=== PATIENT | female | born 1995 | race Caucasian/White ===

== ENCOUNTER → 2016-10-21 | Outpatient (CLI) | payer OTHER ==
[~2016-10-21] MED LIST: BENTYL20 MG PO; CITRATE OF MAG296 ML PO; MIRALAX17 GM PO; MOTRIN600 MG PO; NO HOME MED; PRENATAL TABLE1 EAC3 PO
== END | disposition home or self-care (01) ==
LOC: RES 12:41
DX: R06.2 Wheezing (principal)
CPT/HCPCS: 94070; 94726; 94729

== ENCOUNTER 2017-08-29 05:35 | Day surgery (SDC) | payer OTHER ==
[~2017-08-29] VITALS: Ht 170.2 cm; Wt 70.2 kg
[~2017-08-29 05:35] MED LIST changes: +FLOVENT 11120 INHALA IH; +ORTHO TRI-CY1 TABLE1 PO; +QVAR REDIHALE10.6 G1 IH; +ULTRAM50 MG PO; +VENTOLIN HFA18 GM IH
[2017-08-29] MEDS ORDERED: ZYRTEC10 M2 PO (05:58)
[2017-08-29 06:02] VITALS: BP 124/72
[2017-08-29] MEDS ORDERED: ENDOCET 5-3251 EACH PO (07:22)
[2017-08-29] MEDS ORDERED: IBUPROFEN800 MG PO (07:22)
[2017-08-29 09:50] VITALS: BP 112/56
[2017-08-29 10:58] VITALS: BP 102/52
== END 2017-08-29 11:13 | disposition home or self-care (01) ==
LOC: SDC
DX: N93.9 Abnormal uterine and vaginal bleeding, unspecified (principal); R10.2 Pelvic and perineal pain; K66.0 Peritoneal adhesions (postprocedural) (postinfection); L30.9 Dermatitis, unspecified
CPT/HCPCS: 88305; J0131; J0330; J1100; J1170; J2250; J2405; J3010; Q0175; S0020

== ENCOUNTER 2017-12-14 03:08 | Emergency (ER) | payer OTHER ==
[~2017-12-14] VITALS: Ht 170.2 cm; Wt 77.2 kg
[~2017-12-14 03:08] MED LIST changes: +ENDOCET 5-3251 EACH PO; +IBUPROFEN800 MG PO; +ZYRTEC10 M2 PO
[2017-12-14 05:22] LABS: HEMATOCRIT 36.4 % (36.0-46.0); HEMOGLOBIN 12.5 G/DL (11.9-15.5); MCH 29.6 PG (29.0-34.0); MCHC 34.3 G/DL (30.0-36.0); MCV 86.1 FL (83-99); PLATELET COUNT 186 K/uL (156-360); RBC DIS.WIDTH-CV 12.2 % (11.8-14.6); RBC DIS.WIDTH-SD 38.4 % (39-53); RED BLOOD COUNT 4.23 M/uL (3.80-5.20); WHITE BLOOD COUNT 7.6 K/uL (4.1-10.2)
[2017-12-14 05:35] LABS: ALBUMIN 3.9 g/dL (3.2-4.8); CHLORIDE 107 mEq/L (99-109); POTASSIUM 3.8 mEq/L (3.7-5.4); SODIUM 141 mEq/L (136-147)
[2017-12-14 05:37] LABS: GLUCOSE 103 mg/dL (70-99)
[2017-12-14 05:39] LABS: TOTAL BILIRUBIN 0.3 mg/dL (0.0-1.0)
[2017-12-14 05:41] LABS: ALKALINE PHOSPHATASE 85 IU/L (3-129); CREATININE 0.8 mg/dL (0.6-1.3); GFR ESTIMATE (CALCULATED) > 59 mL/min/
[2017-12-14 05:42] LABS: AST (GOT) 96 IU/L (2-34); UREA NITROGEN (BUN) 10 mg/dL (9-23)
[2017-12-14 05:44] LABS: ALT (GPT) 44 IU/L (3-49)
[2017-12-14 05:50] LABS: QUANTITATIVE HCG < 4.0 MIU/ML
[2017-12-14 06:44] LABS: APPEARANCE CLEAR ((CLEAR)); BILIRUBIN NEGATIVE; BLOOD NEGATIVE; COLOR YELLOW ((YELLOW)); GLUCOSE (STRIP) NEGATIVE; KETONES 5; LEUKOCYTES SMALL; NITRITE NEGATIVE; PROTEIN (STRIP) 30; SPECIFIC GRAVITY 1.029 (1.000-1.030)
[2017-12-14 06:49] LABS: BACTERIA RARE /HPF; EPITHELIAL CELLS 1+ /HPF; MUCUS 2+ /LPF; RED BLOOD CELLS 0-5 /HPF (0-5); UCUL ADDED? NO; WHITE BLOOD CELLS 0-5 /HPF (0-5)
[2017-12-14 06:52] LABS: AMPHETAMINE NEGATIVE (500 ng/mL); BARBITURATES NEGATIVE (200 ng/mL); BENZODIAZEPINES NEGATIVE (150 ng/mL); BUPRENORPHINE NEGATIVE (10 ng/mL); COCAINE NEGATIVE (150 ng/mL); METHADONE NEGATIVE (200 ng/mL); METHAMPHETAMINE NEGATIVE (500 ng/mL); OPIATES (MORPHINE) NEGATIVE (100 ng/mL); OXYCODONE NEGATIVE (100 ng/mL); PHENCYCLIDINE NEGATIVE (25 ng/mL); PROPOXYPHENE NEGATIVE (300 ng/mL); THC CANNABINOIDS NEGATIVE (50 ng/mL); TRICYCLIC ANTIDEPRESSANTS NEGATIVE (300 ng/mL)
[2017-12-14 07:22] LABS: ERTH.SED.RATE 18 MM/HR (0-20)
[2017-12-14 07:45] LABS: THYROTROPIN (TSH) 5.3 MIU/L (0.4-5.5)
[2017-12-14 08:02] LABS: C-REACTIVE PROTEIN < 1.0 MG/L (0-10)
[2017-12-14] MEDS ORDERED: MEDROL DOSEPAK4 MG PO (11:43)
[2017-12-14] MEDS ORDERED: GABAPENTIN300 MG PO (11:43)
[2017-12-14] MEDS ORDERED: MOTRIN400 MG PO (11:43)
[2017-12-14 12:02] VITALS: BP 135/78
[2017-12-15 10:08] LABS: LYME DISEASE SEROLOGY SCREEN NEGATIVE (NEGATIVE)
== END 2017-12-14 12:15 | disposition home or self-care (01) ==
LOC: EME 03:08
PROVIDERS: Physician Assistant
DX: G51.0 Bell's palsy (principal); Z87.891 Personal history of nicotine dependence
CPT/HCPCS: 70553; 80053; 81003; 83735; 84443; 84702; 85027; 85651; 86140; 86618; 99281; 99284; J2060